=== PATIENT | female | born 1955 | race Caucasian/White ===

== ENCOUNTER → 2016-06-28 | Outpatient (CLI) | payer OTHER ==
[2016-06-28 09:29] LABS: ALBUMIN 4.2 g/dL (3.4-5.0); ALKALINE PHOSPHATASE 90 U/L (46-116); ALT/SGPT 26 U/L (14-59); AST/SGOT 17 U/L (15-37); CALCIUM 9.4 mg/dL (8.5-10.1); CARBON DIOXIDE 27.3 mmol/L (21-32); CHLORIDE SERUM 105 mmol/L (98-107); CHOLESTEROL 174 mg/dL (<200); CHOLESTEROL/HDL RATIO 2.3; CREATININE SERUM 0.8 mg/dL (0.6-1.0); GFR1 > 60 mL/min; GLUCOSE SERUM 112 mg/dL (74-106); HDL CHOLESTEROL 76 mg/dL (40-60); SODIUM SERUM 138 mmol/L (136-145); TOTAL PROTEIN, SERUM 7.9 g/dL (6.4-8.2); TRIGLYCERIDES 138 mg/dL (<150)
== END | disposition home or self-care (01) ==
LOC: LB 08:42
PROVIDERS: Family Medicine
DX: E78.5 Hyperlipidemia, unspecified (principal)

== ENCOUNTER → 2016-07-16 | Outpatient (CLI) | payer OTHER | END | disposition home or self-care (01) | LOC: MI 07-15 09:00 | PROC: BQ38ZZZ Magnetic Resonance Imaging (MRI) of Left Knee (ICD-10-PCS; principal; 2016-07-16) | PROC: BQ37ZZZ Magnetic Resonance Imaging (MRI) of Right Knee (ICD-10-PCS; 2016-07-16) | DX: M25.569 Pain in unspecified knee (principal) ==

== ENCOUNTER → 2017-07-16 | Outpatient (CLI) | payer OTHER | END | disposition home or self-care (01) | LOC: US 08:38 | PROC: BH4CZZZ Ultrasonography of Head and Neck (ICD-10-PCS; principal; 2017-07-16) | PROC: BT4JZZZ Ultrasonography of Kidneys and Bladder (ICD-10-PCS; 2017-07-16) | DX: R59.0 Localized enlarged lymph nodes (principal); N39.0 Urinary tract infection, site not specified ==

== ENCOUNTER → 2017-07-21 | Outpatient (CLI) | payer OTHER ==
[2017-07-21 12:07] LABS: BASOPHIL % 0.5 % (0-2); PLATELET COUNT 256 x10^3mcL (130-400); RED CELL DISTRIBUTION WIDTH 13.1 % (11.5-14.5)
[2017-07-21 13:10] LABS: ALBUMIN 4.1 g/dL (3.4-5.0); ALKALINE PHOSPHATASE 73 U/L (46-116); ALT/SGPT 34 U/L (14-59); AST/SGOT 19 U/L (15-37); BILIRUBIN TOTAL 0.4 mg/dL (0.20-1.00); CALCIUM 8.8 mg/dL (8.5-10.1); CARBON DIOXIDE 25.3 mmol/L (21-32); CHLORIDE SERUM 105 mmol/L (98-107); CHOLESTEROL 147 mg/dL (<200); CREATININE SERUM 0.8 mg/dL (0.6-1.0); GFR1 > 60 mL/min; GLUCOSE SERUM 110 mg/dL (74-106); POTASSIUM SERUM 4.3 mmol/L (3.5-5.1); SODIUM SERUM 139 mmol/L (136-145); TOTAL PROTEIN, SERUM 7.5 g/dL (6.4-8.2); TRIGLYCERIDES 47 mg/dL (<150)
[2017-07-21 13:11] LABS: CHOLESTEROL/HDL RATIO 1.7; FREE T4 1.06 ng/dL (0.76-1.46); FREE THYROXINE INDEX 2.5 ug/dL (1.4-4.5); HDL CHOLESTEROL 85 mg/dL (40-60); T4(THYROXINE) 7.8 ug/dL (4.7-13.3)
[2017-07-21 13:32] LABS: T3 TOTAL 0.94 ng/mL
== END | disposition home or self-care (01) ==
LOC: LB 11:19
PROVIDERS: Student in an Organized Health Care Education/Training Program
DX: N39.0 Urinary tract infection, site not specified (principal)
CPT/HCPCS: 84439

== ENCOUNTER 2017-08-23 09:04 | Emergency (ER) | payer OTHER ==
[~2017-08-23] VITALS: Ht 167.6 cm; Wt 93.9 kg
[2017-08-23 09:08] VITALS: Ht 167.6 cm; Wt 93.9 kg
[2017-08-23 09:48] VITALS: BP 160/99
== END 2017-08-23 09:48 | disposition home or self-care (01) ==
LOC: ED 09:04
DX: J20.9 Acute bronchitis, unspecified (principal); J45.909 Unspecified asthma, uncomplicated; R09.81 Nasal congestion; I10 Essential (primary) hypertension; E78.00 Pure hypercholesterolemia, unspecified

== ENCOUNTER → 2017-08-30 | Outpatient (CLI) | payer OTHER | END | disposition home or self-care (01) | LOC: RD 12:07 | DX: J40 Bronchitis, not specified as acute or chronic (principal) ==

== ENCOUNTER → 2017-10-14 | Outpatient (CLI) | payer OTHER | END | disposition home or self-care (01) | LOC: CT 08:29 | PROC: BW2F1ZZ Computerized Tomography (CT Scan) of Neck using Low Osmolar Contrast (ICD-10-PCS; principal; 2017-10-14) | DX: R22.1 Localized swelling, mass and lump, neck (principal) ==

== ENCOUNTER → 2017-12-09 | Outpatient (CLI) | payer OTHER | END | disposition home or self-care (01) | LOC: MI 09:00 | PROC: BR39ZZZ Magnetic Resonance Imaging (MRI) of Lumbar Spine (ICD-10-PCS; principal; 2017-12-09) | DX: M54.5 Low back pain (principal); G89.4 Chronic pain syndrome ==

== ENCOUNTER 2018-02-06 13:38 | Emergency (ER) | payer OTHER ==
[~2018-02-06] VITALS: Ht 167.6 cm; Wt 96.2 kg
[2018-02-06 13:47] VITALS: Ht 167.6 cm; Wt 96.2 kg
[2018-02-06 15:08] VITALS: BP 168/71
== END 2018-02-06 15:08 | disposition home or self-care (01) ==
LOC: ED 13:38
DX: B02.9 Zoster without complications (principal); G89.29 Other chronic pain; J45.909 Unspecified asthma, uncomplicated; I10 Essential (primary) hypertension; E78.00 Pure hypercholesterolemia, unspecified; M54.9 Dorsalgia, unspecified; Z88.1 Allergy status to other antibiotic agents
CPT/HCPCS: J2270; J2405

== ENCOUNTER → 2018-03-16 | Outpatient (CLI) | payer OTHER | END | disposition home or self-care (01) | LOC: MI 12:12 | PROC: BR30ZZZ Magnetic Resonance Imaging (MRI) of Cervical Spine (ICD-10-PCS; principal; 2018-03-16) | DX: G89.4 Chronic pain syndrome (principal); M54.5 Low back pain ==

== ENCOUNTER 2018-06-24 06:32 | Day surgery (SDC) | payer OTHER ==
[~2018-06-24] VITALS: Ht 167.6 cm; Wt 99.8 kg
[2018-06-24 07:01] VITALS: BP 154/82
[2018-06-24 10:20] VITALS: BP 129/70
== END 2018-06-24 10:00 | disposition home or self-care (01) ==
LOC: DS 06:32 → OR 08:00 → DS 10:00
PROVIDERS: Anesthesiology Pain Medicine
PROC: 3E0R33Z Introduction of Anti-inflammatory into Spinal Canal, Percutaneous Approach (ICD-10-PCS; principal; 2018-06-24 08:00)
DX: M50.10 Cervical disc disorder with radiculopathy, unspecified cervical region (principal); G89.4 Chronic pain syndrome; I10 Essential (primary) hypertension; J45.909 Unspecified asthma, uncomplicated; K21.9 Gastro-esophageal reflux disease without esophagitis; E66.3 Overweight
CPT/HCPCS: 77003; J1100; J2250; J3010; J3490; J7040; Q9967

== ENCOUNTER 2018-07-22 06:25 | Day surgery (SDC) | payer OTHER ==
[2018-07-21 13:04] LABS: CALCIUM 9.6 mg/dL (8.5-10.1); CARBON DIOXIDE 26.1 mmol/L (21-32); POTASSIUM SERUM 4.4 mmol/L (3.5-5.1)
[2018-07-21 13:14] LABS: BASOPHIL % 0.5 % (0-2); PLATELET COUNT 295 x10^3mcL (130-400); RED CELL DISTRIBUTION WIDTH 13.1 % (11.5-14.5)
--- NOTE | 2018-07-21 15:37 | NUR ---
PT REPORTED ON PREOP VISIT TODAY OF HER ISSUE FOLLOWING PROCEDURE HERE ON 06-24-18. PT REPORTS "REPORTED IT TO SHARON AT DR BENNETT'S OFFICE AND IT RESOLVED THE FOLLOWING MORNING AFTER THE PROCEDURE. I FELT ILL, MY BLOOD PRESSURE WAS 160-170. MY HEARTRATE WENT UP TO THE 90'S." MESSAGE LEFT WITH SHARON AT DR BENNETT'S OFFICE THIS AFTERNOON AND NOTIFED PILAR TYSON IN PACU FOR DR RAMIREZ OF THE PATIENTS COMMENTS.
[~2018-07-22] VITALS: Ht 167.6 cm; Wt 99.3 kg
[2018-07-22 06:50] VITALS: BP 145/98
[2018-07-22 12:57] VITALS: BP 122/69
== END 2018-07-22 10:10 | disposition home or self-care (01) ==
LOC: DS 06:25 → OR 08:00 → DS 08:00
PROVIDERS: Anesthesiology Pain Medicine
PROC: 3E0U33Z Introduction of Anti-inflammatory into Joints, Percutaneous Approach (ICD-10-PCS; 2018-07-22)
PROC: 3E0233Z Introduction of Anti-inflammatory into Muscle, Percutaneous Approach (ICD-10-PCS; principal; 2018-07-22 08:00)
DX: M46.1 Sacroiliitis, not elsewhere classified (principal); I10 Essential (primary) hypertension; J45.909 Unspecified asthma, uncomplicated; E66.9 Obesity, unspecified; Z68.35 Body mass index [BMI] 35.0-35.9, adult; G89.4 Chronic pain syndrome; M51.16 Intervertebral disc disorders with radiculopathy, lumbar region
CPT/HCPCS: 27096; 20552; G0260; 77003; J2250; J2704; J3010; J3301; J3490; J7040; Q9967

== ENCOUNTER → 2018-07-24 | Outpatient (CLI) | payer OTHER | END | disposition home or self-care (01) | LOC: RD 18:03 | DX: G89.4 Chronic pain syndrome (principal) ==

== ENCOUNTER → 2018-12-16 | Outpatient (CLI) | payer OTHER ==
[2018-12-16 14:01] LABS: microscopic required? YES; urine erythrocyte NEGATIVE (NEGATIVE)
== END | disposition home or self-care (01) ==
LOC: LB 13:35
DX: N39.0 Urinary tract infection, site not specified (principal)

== ENCOUNTER → 2019-02-18 | Outpatient (CLI) | payer OTHER | END | disposition home or self-care (01) | LOC: LB 17:16 | DX: N39.0 Urinary tract infection, site not specified (principal) ==

== ENCOUNTER → 2020-02-28 | Outpatient (CLI) | payer SELFPAY | END | disposition home or self-care (01) | LOC: MA 09:13 | PROC: BH02ZZZ Plain Radiography of Bilateral Breasts (ICD-10-PCS; principal; 2020-02-28) | DX: Z12.31 Encounter for screening mammogram for malignant neoplasm of breast (principal) | CPT/HCPCS: 77067 ==